=== PATIENT | male | born 1945 | race Caucasian/White ===

== ENCOUNTER 2020-07-24 11:12 | Inpatient (IN) ==
--- NOTE | 2020-07-24 11:43 | Emergency Department Note ---
Chest Pain HPI General Chief Complaint: Chest Pain Stated Complaint: chest pain, SOB Time Seen by Provider: 07/24/20 11:20 Source: patient and RN notes reviewed Mode of arrival: ambulatory Limitations: no limitations History of Present Illness HPI Narrative: Narrative: This patient developed chest pain yesterday on the right side of his chest that he described as a heartburn indigestion type sensation. It has resolved today. He does not have any history of cardiac disease although he said his rhythm recently has been diagnosed as A. fib a flutter. No history of coronary syndrome. He does have chronic COPD and is using oxygen at home 12/02. He is also has some green phlegm in his throat which she says is not new. No headache diarrhea abdominal pain or other symptoms. MD complaint: chest pain Duration: intermittent and now resolved Onset: during rest Pain Location: right chest Severity: moderate Quality: dull Pain Radiation: none Improves with: nothing Worsens with: nothing Related Data Home Medications Medication Instructions Recorded Confirmed albuterol sulfate 2 puff INHALATION Q4H PRN 07/24/20 07/24/20 amiodarone 200 mg PO BID 07/24/20 07/24/20 aspirin 81 mg PO QDAY 07/24/20 07/24/20 atorvastatin 80 mg PO QDAY 07/24/20 07/24/20 gabapentin 600 mg PO BID 07/24/20 07/24/20 insulin glargine 30 unit SUBCUT QPM 07/24/20 07/24/20 lidocaine 1 patch TOPICAL QDAY 07/24/20 07/24/20 metoprolol tartrate 100 mg PO BID 07/24/20 07/24/20 terbinafine HCl 1 applic TOPICAL QDAY 07/24/20 07/24/20 tiotropium-olodaterol 2 puff INHALATION Q24H 07/24/20 07/24/20 Allergies Allergy/AdvReac Type Severity Reaction Status Date / Time acetaminophen [From Percocet] AdvReac Unknown Verified 06/13/20 11:13 oxycodone [From Percocet] AdvReac Unknown Verified 06/13/20 11:13 Review of Systems ROS ROS Narrative: Narrative: All systems ED: reviewed and negative except as stated. [facility] Narrative Patient History Narrative: Narrative: Medical/Surgical/Family History All Active Problems (Updated 07/24/20 @ 13:35 by Gabriel Kim MD) Tachycardia (Acute) Generalized weakness (Acute) Elevated d-dimer (Acute) Constipation (Acute) CKD (chronic kidney disease) (Acute) Acute upper gastrointestinal bleeding (Acute) Social History Smoking Status: Former smoker Alcohol Intake Frequency: does not drink Substance Use: does not use Exam Narrative Narrative: Narrative: General Limitations: no limitations General appearance: Present alert Head Head: Present atraumatic, normocephalic and normal inspection Eye Eye: Present normal appearance and EOMI; Absent scleral icterus and conjunctival injection Neck Neck: Present normal inspection and full ROM Respiratory Respiratory: Present normal lung sounds bilaterally Cardiovascular Cardiovascular: Present tachycardia, irregular rhythm and normal heart sounds Adbominal Abdominal: Present soft; Absent distention and tenderness Rectal Rectal: Present heme (+) stool and black stool Extremities Extremities: Present normal inspection and full ROM; Absent pedal edema and pretibial edema Neurological Neurological: Present alert Psychiatric Psychiatric: Present normal affect Skin Skin: Present warm (WNL) and dry; Absent diaphoresis Course Vital Signs Vital signs: Vital Signs Temperature 97.9 F 07/24/20 11:13 Pulse Rate 98 H 07/24/20 11:13 Respiratory Rate 20 07/24/20 11:13 Blood Pressure 112/46 07/24/20 11:13 Pulse Oximetry (%) 100 07/24/20 11:13 Temperature 97.9 F 07/24/20 11:13 Pulse Rate 94 H 07/24/20 14:00 Respiratory Rate 20 07/24/20 14:00 Blood Pressure 120/80 07/24/20 13:30 Pulse Oximetry (%) 100 07/24/20 14:00 [facility] Narrative Medical decision making narrative: Narrative: It sounds like this patient may be on Eliquis for the last week but we can document that for sure. He was seen by a getter welder in [place] for new A. fib flutter and was placed on amiodarone. So Eliquis does make sense. I discussed the case with our general surgeon and the hospitalist to Dr. Dominique and the patient will be admitted to the hospital and endoscopy will be planned. We will also give him 3 units of packed red cells. He does appear to be hemodynamically stable. His troponin was negative and his EKG did not show acute coronary syndrome. Lab Data Lab results reviewed: Yes I reviewed the patient's lab results. Lab results narrative: Hemoglobin was 5.8 Result diagrams: 07/24/20 11:57 07/24/20 11:57 Labs: Lab Results 07/24/20 07/24/20 07/24/20 Range/Units 11:57 11:57 11:57 WBC 10.9 (4.5-11.0) K/mcL RBC 1.98 L (4.50-5.90) M/mcL Hgb 5.8 L* (13.5-16.5) g/dL Hct 19.5 L* (41.0-55.0) % MCV 98.5 (80.0-100.0) fL MCH 29.3 (26.0-34.0) pg MCHC 29.7 L (31.0-36.0) g/dL RDW 18.6 H (11.5-14.5) % Plt Count 321 (140-440) K/mcL MPV 10.1 (7.4-10.4) fL Neut % (Auto) 80.2 H (38.0-78.0) % Lymph % (Auto) 10.5 L (15.0-49.0) % [place] % (Auto) 8.7 (1.0-12.0) % Eos % (Auto) 0.4 (0.0-7.0) % Baso % (Auto) 0.2 (0.0-2.0) % Lymph # (Auto) 1.14 L (1.50-4.80) K/mcL [place] # (Auto) 0.94 H (0.10-0.90) K/mcL Eos # (Auto) 0.04 (0.00-0.70) K/mcL Baso # (Auto) 0.02 (0.00-0.20) K/mcL Absolute Neutrophils 8.71 H (1.80-8.00) K/mcL Sodium 136 (133-145) mmol/L Potassium 5.5 H (3.3-5.1) mmol/L Chloride 98 (96-108) mmol/L Carbon Dioxide 30 (22-30) mmol/L Anion Gap 8.0 (8.0-16.0) BUN 50 H (8-23) mg/dL Creatinine 2.2 H (0.7-1.2) mg/dL GFR Calculation 28 Glucose 178 H (70-105) mg/dL Calcium 9.0 (8.6-10.4) mg/dL Total Bilirubin 0.2 (0.1-1.0) mg/dL AST 9 (<40) U/L ALT 12 (<40) U/L Alkaline Phosphatase 80 (39-117) U/L Troponin T < 0.01 (<0.03) ng/mL NT-Pro-B Natriuret Pep 821.2 H (<450.0) pg/mL Total Protein 6.6 (5.9-8.4) gm/dL Albumin 3.6 (3.2-5.2) gm/dL Globulin 3.0 (2.2-3.7) gm/dL Albumin/Globulin Ratio 1.2 (1.0-2.3) Urine Color Urine Appearance (Clear) Urine pH (5.0-9.0) Ur Specific [place] (1.000-1.035) Urine Protein (Negative) mg/dL Urine Glucose (UA) (Negative) mg/dL Urine Ketones (Negative) mg/dL Urine Occult Blood (Negative) mg/dL Urine Nitrate (Negative) Urine Bilirubin (Negative) mg/dL Urine Urobilinogen mg/dL Ur Leukocyte Esterase (Negative) /ug Urine RBC (0-3) /hpf Urine WBC (0-4) /hpf Ur Squamous Epith Cells (0-4) /hpf Urine Bacteria (0) /hpf Urine Mucus (None) /hpf Ur Culture Indicated? 07/24/20 Range/Units 12:21 WBC (4.5-11.0) K/mcL RBC (4.50-5.90) M/mcL Hgb (13.5-16.5) g/dL Hct (41.0-55.0) % MCV (80.0-100.0) fL MCH (26.0-34.0) pg MCHC (31.0-36.0) g/dL RDW (11.5-14.5) % Plt Count (140-440) K/mcL MPV (7.4-10.4) fL Neut % (Auto) (38.0-78.0) % Lymph % (Auto) (15.0-49.0) % [place] % (Auto) (1.0-12.0) % Eos % (Auto) (0.0-7.0) % Baso % (Auto) (0.0-2.0) % Lymph # (Auto) (1.50-4.80) K/mcL [place] # (Auto) (0.10-0.90) K/mcL Eos # (Auto) (0.00-0.70) K/mcL Baso # (Auto) (0.00-0.20) K/mcL Absolute Neutrophils (1.80-8.00) K/mcL Sodium (133-145) mmol/L Potassium (3.3-5.1) mmol/L Chloride (96-108) mmol/L Carbon Dioxide (22-30) mmol/L Anion Gap (8.0-16.0) BUN (8-23) mg/dL Creatinine (0.7-1.2) mg/dL GFR Calculation Glucose (70-105) mg/dL Calcium (8.6-10.4) mg/dL Total Bilirubin (0.1-1.0) mg/dL AST (<40) U/L ALT (<40) U/L Alkaline Phosphatase (39-117) U/L Troponin T (<0.03) ng/mL NT-Pro-B Natriuret Pep (<450.0) pg/mL Total Protein (5.9-8.4) gm/dL Albumin (3.2-5.2) gm/dL Globulin (2.2-3.7) gm/dL Albumin/Globulin Ratio (1.0-2.3) Urine Color Yellow Urine Appearance Clear (Clear) Urine pH 5.0 (5.0-9.0) Ur Specific [place] 1.017 (1.000-1.035) Urine Protein 30 A (Negative) mg/dL Urine Glucose (UA) Negative (Negative) mg/dL Urine Ketones Negative (Negative) mg/dL Urine Occult Blood Negative (Negative) mg/dL Urine Nitrate Pos A (Negative) Urine Bilirubin Negative (Negative) mg/dL Urine Urobilinogen Negative mg/dL Ur Leukocyte Esterase 250 A (Negative) /ug Urine RBC 2 (0-3) /hpf Urine WBC 48 H (0-4) /hpf Ur Squamous Epith Cells 0 (0-4) /hpf Urine Bacteria Mod A (0) /hpf Urine Mucus Few A (None) /hpf Ur Culture Indicated? yes Radiology Data Radiology results reviewed: Yes I reviewed the patient's radiology results. 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
[2020-07-24 12:43] LABS: Basophils # (Auto) 0.02 K/mcL (0.00-0.20); Basophils % (Auto) 0.2 % (0.0-2.0); Eosinophils # (Auto) 0.04 K/mcL (0.00-0.70); Eosinophils % (Auto) 0.4 % (0.0-7.0); Hematocrit 19.5 % (41.0-55.0); Hemoglobin 5.8 g/dL (13.5-16.5); Lymphocytes # (Auto) 1.14 K/mcL (1.50-4.80); Lymphocytes % (Auto) 10.5 % (15.0-49.0); Mean Cell Volume 98.5 fL (80.0-100.0); Mean Corpuscular HGB Conc 29.7 g/dL (31.0-36.0); Mean Platelet Volume 10.1 fL (7.4-10.4); Monocytes # (Auto) 0.94 K/mcL (0.10-0.90); Monocytes % (Auto) 8.7 % (1.0-12.0); Neutrophils % (Auto) 80.2 % (38.0-78.0); Platelet Count 321 K/mcL (140-440); RBC 1.98 M/mcL (4.50-5.90); Red Cell Distribution Width 18.6 % (11.5-14.5); WBC 10.9 K/mcL (4.5-11.0)
[2020-07-24] MEDS ORDERED: 0.9 % SODIUM CHLORIDE 250 ML IV SCH (12:45)
[2020-07-24 12:53] LABS: proBNP 821.2 pg/mL (<450.0)
[2020-07-24 12:55] LABS: ALT/SGPT 12 U/L (<40); AST/SGOT 9 U/L (<40); Albumin 3.6 gm/dL (3.2-5.2); Albumin/Globulin Ratio 1.2 (1.0-2.3); Alkaline Phosphatase 80 U/L (39-117); Bilirubin,Total 0.2 mg/dL (0.1-1.0); Blood Urea Nitrogen 50 mg/dL (8-23); Carbon Dioxide 30 mmol/L (22-30); Chloride 98 mmol/L (96-108); Glomerular Filtration Rate 28; Glucose 178 mg/dL (70-105)
[2020-07-24 13:10] LABS: Appearance,Urine CLEAR (Clear); Bacteria,Urine MOD /hpf (0); Bilirubin,Urine Negative (Negative); Color,Urine YELLOW; Culture Indicated,Urine yes; Glucose,Urine (UA) Negative (Negative); Ketones,Urine Negative (Negative); Leukocyte Esterase,Urine 250 /ug (Negative); Mucus,Urine FEW /hpf; Nitrate,Urine POS (Negative); Protein,Urine 30 mg/dL (Negative); Specific Gravity,Urine 1.017 (1.000-1.035); Urine Blood Negative (Negative); Urine RBC 2 /hpf (0-3); Urine Squamous Epithelial Cell 0 /hpf (0-4); Urine WBC 48 /hpf (0-4); Urobilinogen,Urine Negative
[2020-07-24] MEDS ORDERED: PANTOPRAZOLE 40 MG VIAL IV ONE ×2 (13:12→22:31)
[2020-07-24] MEDS ORDERED: PANTOPRAZOLE 80 MG in 0.9 % SODIUM CHLORIDE 100 ML IV SCH ×2 (13:15→23:15)
--- NOTE | 2020-07-24 13:40 | Internal Med History&Physical ---
HPI History of Present Illness Patient information: Note initiated : 07/24/20 at 1:34 pm Service Date, if different from initiated Date: [] Patient: Darryn Cunningham a 74 y/o M admitted on for chest pain, SOB. Chief Complaint: [] History of present illness: Mr. Cunningham is a 74 year old M Who presents the ED with chest pain described as pyrosis in nature and weakness. Presented today because of severe weakness. He is visiting from out of town, visiting his daughter. Patient was recently diagnosed that fibrillation and has been on a twice daily anticoagulant which she cannot recall the name of. He started developing dark stools and then developed diarrhea for the past couple days which has been dark. Troponin was unremarkable. He is found have a hemoglobin of 5.8. Blood transfusion was ordered and general surgeon Dr. Macarena Mon was consulted for endoscopy. Patient's vital signs are stable. Patient complains of several week severe weakness is unable to walk across the room of his house. He has some lightheadedness. Chest pain started in the center of his chest and radiated count of up and down from the center and it felt like his heartburn. And then did have some radiation the left. But has improved but primarily his complaint now is weakness. Patient does have chronic headaches and takes Tylenol but does not take NSAIDs. [place] abdominal pain. Review of Systems: Positive as above. Plus chronic headaches. Denies /fever/chi lls/nausea/vomiting/abdominal pain/cough/dyspnea. Remaining 10 point review of system reviewed negative PFSH PFSH All Active Problems (Updated 07/24/20 @ 13:35 by Gabriel Kim MD) Tachycardia (Acute) Generalized weakness (Acute) Elevated d-dimer (Acute) Constipation (Acute) CKD (chronic kidney disease) (Acute) Acute upper gastrointestinal bleeding (Acute) Social History smoking status: Former smoker alcohol intake frequency: does not drink substance use type: does not use MEDS/ALLERGIES Home Medications and Allergies Home Medications Medication Instructions Recorded Confirmed Type albuterol sulfate 2 puff INHALATION Q4H PRN 07/24/20 07/24/20 History amiodarone 200 mg PO BID 07/24/20 07/24/20 History aspirin 81 mg PO QDAY 07/24/20 07/24/20 History atorvastatin 80 mg PO QDAY 07/24/20 07/24/20 History gabapentin 600 mg PO BID 07/24/20 07/24/20 History insulin glargine 30 unit SUBCUT QPM 07/24/20 07/24/20 History lidocaine 1 patch TOPICAL QDAY 07/24/20 07/24/20 History metoprolol tartrate 100 mg PO BID 07/24/20 07/24/20 History terbinafine HCl 1 applic TOPICAL QDAY 07/24/20 07/24/20 History tiotropium-olodaterol 2 puff INHALATION Q24H 07/24/20 07/24/20 History Allergies Allergy/AdvReac Type Severity Reaction Status Date / Time acetaminophen [From Percocet] AdvReac Unknown Verified 06/13/20 11:13 oxycodone [From Percocet] AdvReac Unknown Verified 06/13/20 11:13 EXAM Constitutional Vitals: Temp Pulse Resp BP Pulse Ox 97.9 F 93 H 21 120/80 100 07/24/20 11:13 07/24/20 13:16 07/24/20 13:30 07/24/20 13:30 07/24/20 13:16 Exam: General: Alert, Awake, No acute Distress Eyes/N/T: EOMI, PERRL, Head/Neck: neck supple, normocephalic atraumatic CV: irreg irreg, No murmurs, normal s1/s2 Pulm: Clear b/l, no wheezing/rhonchi/rales Abd: soft, nontender, +BS x4 Ext: no clubbing/cyanosis/edema Neuro: Alert, no focal deficits, moves all extremities, CN 2-12 grossly intact, symmetrical strength b/l upper/lower, sensations intact b/l upper/lower Skin: warm/dry, pale DATA Data Completed and Pending Labs: Labs from last 24 hours 07/24/20 07/24/20 07/24/20 12:21 11:57 11:57 WBC RBC Hgb Hct MCV MCH MCHC RDW Plt Count MPV Neut % (Auto) Lymph % (Auto) [place] % (Auto) Eos % (Auto) Baso % (Auto) Lymph # (Auto) [place] # (Auto) Eos # (Auto) Baso # (Auto) Absolute Neutrophils Sodium 136 Potassium 5.5 H Chloride 98 Carbon Dioxide 30 Anion Gap 8.0 BUN 50 H Creatinine 2.2 H GFR Calculation 28 Glucose 178 H Calcium 9.0 Total Bilirubin 0.2 AST 9 ALT 12 Alkaline Phosphatase 80 Troponin T < 0.01 NT-Pro-B Natriuret Pep 821.2 H Total Protein 6.6 Albumin 3.6 Globulin 3.0 Albumin/Globulin Ratio 1.2 Urine Color Yellow Urine Appearance Clear Urine pH 5.0 Ur Specific [place] 1.017 Urine Protein 30 A Urine Glucose (UA) Negative Urine Ketones Negative Urine Occult Blood Negative Urine Nitrate Pos A Urine Bilirubin Negative Urine Urobilinogen Negative Ur Leukocyte Esterase 250 A Urine RBC 2 Urine WBC 48 H Ur Squamous Epith Cells 0 Urine Bacteria Mod A Urine Mucus Few A Ur Culture Indicated? yes 07/24/20 11:57 WBC 10.9 RBC 1.98 L Hgb 5.8 L* Hct 19.5 L* MCV 98.5 MCH 29.3 MCHC 29.7 L RDW 18.6 H Plt Count 321 MPV 10.1 Neut % (Auto) 80.2 H Lymph % (Auto) 10.5 L [place] % (Auto) 8.7 Eos % (Auto) 0.4 Baso % (Auto) 0.2 Lymph # (Auto) 1.14 L [place] # (Auto) 0.94 H Eos # (Auto) 0.04 Baso # (Auto) 0.02 Absolute Neutrophils 8.71 H Sodium Potassium Chloride Carbon Dioxide Anion Gap BUN Creatinine GFR Calculation Glucose Calcium Total Bilirubin AST ALT Alkaline Phosphatase Troponin T NT-Pro-B Natriuret Pep Total Protein Albumin Globulin Albumin/Globulin Ratio Urine Color Urine Appearance Urine pH Ur Specific [place] Urine Protein Urine Glucose (UA) Urine Ketones Urine Occult Blood Urine Nitrate Urine Bilirubin Urine Urobilinogen Ur Leukocyte Esterase Urine RBC Urine WBC Ur Squamous Epith Cells Urine Bacteria Urine Mucus Ur Culture Indicated? A/P Narrative A/P Narrative: A: *GI bleed, likely upper: *Acute blood loss anemia: *AFib, recent diagnosed: Started on anticoagulation recently, also on aspirin *COPD (4L O2@home)`: *DM w/neuropathy: *CKD IV: * P: -NPO/ -ppi gtt -3PRBC ordered, monitor H&H -Gen Surgeon for endoscopy -Continue home amio/BB -hold anticoagulant/aspirin -cont home insulin, SSI -cont home IH's - -pt/ot -ppx: SCD full code Time Spent With Patient Time: Total time spent is greater than 50% in coordination of care (as documented) at patient's floor/unit and/or counseling patient:
[2020-07-24] MEDS ORDERED: DEXTROSE 31 GM ORAL.SUSP PO PRN (14:30)
[2020-07-24] MEDS ORDERED: TIOTROPIUM OLODATEROL INHALATION SCH (14:30)
[2020-07-24] MEDS ORDERED: POTASSIUM CHLORIDE 20 MEQ TABLET PO PRN ×2 (14:30)
[2020-07-24] MEDS ORDERED: ONDANSETRON 4 MG/2 ML VIAL IV PRN (14:30)
[2020-07-24] MEDS ORDERED: MAGNESIUM SULFATE 2 GM/50 ML BAG IV PRN (14:30)
[2020-07-24] MEDS ORDERED: METOCLOPRAMIDE 10 MG/2 ML VIAL IV PRN (14:30)
[2020-07-24] MEDS ORDERED: PHENobarb/HYOSCY/ATROPINE/SCOP 1 DOSE BOTTLE PO PRN (14:30)
[2020-07-24] MEDS ORDERED: POTASSIUM CHLORIDE 40 MEQ in DEXTROSE 5% IN WATER 500 ML IV PRN (14:30)
[2020-07-24] MEDS ORDERED: IPRATROPIUM/ALBUTEROL 3 ML AMPUL.NEB NEB PRN (14:30)
[2020-07-24] MEDS ORDERED: ALBUTEROL SULFATE 200 PUFF INHALER INH PRN (14:30)
[2020-07-24] MEDS ORDERED: DEXTROSE 50% 50 ML VIAL IV PRN (14:30)
[2020-07-24] MEDS ORDERED: METOPROLOL TARTRATE 5 MG/5 ML VIAL IV PRN (14:30)
--- NOTE | 2020-07-24 14:47 | XRay Report ---
HISTORY: Short of breath and chest pain FINDINGS: Right diaphragm is mild to moderately elevated. There are bands of discoid atelectasis adjacent to both diaphragms. Mid and upper lung cordero are clear. Heart size is upper limits of normal but magnified by portable technique. Recent chest CT done on 06/14/20 confirmed a normal size heart with a prominent epicardial fat pad along the left heart border. The elevation of the right diaphragm is also chronic. There is no congestive heart failure or pleural effusion. The mediastinum is normal. Overall there has been no change since 06/13/20. IMPRESSION: No acute abnormality Interpreted and Authenticated by: David Joseph 07/24/20
[2020-07-24] MEDS: 0.9 % SODIUM CHLORIDE 10 ML SYRINGE IV SCH ×2 (15:00→22:34)
[2020-07-24] MEDS: CALCIUM CARBONATE 500 MG TAB.CHEW CHEWED SCH (16:18)
[2020-07-24] MEDS: INSULIN LISPRO 1 UNIT/0.01 ML UNIT SQ SCH ×2 (16:18→20:49)
[2020-07-24] MEDS: 0.9 % SODIUM CHLORIDE 250 ML IV SCH (16:19)
[2020-07-24] MEDS: ACETAMINOPHEN 325 MG TABLET PO PRN (19:34)
--- NOTE | 2020-07-24 19:52 | General Surgery Consult Note ---
HPI Data of Consult Primary Care Provider: PCP No Consult Narrative Patient Information: Note initiated : 07/24/20 at 7:41 pm Service Date, if different from initiated Date: [] Patient: Darryn Cunningham 74 y/o M admitted on 07/24/20 for chest pain, SOB. Chief Complaint: GI bleed HPI: 74 yo chronically unwell man HD1 admitted for GI bleed. In the setting of advanced COPD on 4L hm oxygen and OSH on nightly BIPAP and T2DM pt developed Afib. He was recently started on anticoagulation with a presumed Factor Xa inhibitory (oral tablet taken BID). 2 days ago developed melanotic diarrhea with associated fatigue, loss of appitite, and began sleeping most of day. Yesterday he again had a normal brown bowel movement but then again resumed with a melanotic stool yesterday evening. He denies any associated epigastric or other abdominal pain. Did have substernal chest pain prior to recieving blood transfusitons. In the ED pt was noted to have a Hb 5.8 and mild tackycardia. Cr 2.2 with BUN 50. No hypotention. He is now s/p 3 units of blood and feels much improved energy. He has not had a BM today. Last ingested his anticoagulant 24hrs ago. Of note: pt has a 7cm AAA and is awaiting manufacture of a custom aortic graft prior to planned TVAR. No hx of PUD. He does report a hx of liver disease from prior heavy drinking. Brother with hx of colon cancer. Last colonoscopy 1+ yrs ago with single polyp removed. Pt is known to have diverticulosis. PMH: COPD KURT CKD A fib T2DM hx of tobacco depenendence Questional hx of liver disease PMH: B inguinal hernia umbilical hernia Hip replacement Bilaterally Renal stents ?lithotripsy cc:: CC: Cedrick Dominique Constitutional Constitutional: Present daytime sleepiness and weakness; Absent fever(s) and increased appetite EENT Eyes: Absent tunnel vision Cardiovascular Cardiovascular: Present chest pain with activity Respiratory Respiratory: Present dyspnea on exertion Gastrointestinal Gastrointestinal: Present melena; Absent abdominal pain Genitourinary Genitourinary: urinary frequency Musculoskeletal Musculoskeletal: Present arthralgias Integumentary Integumentary: Absent pruritus Neurological Neurological: Present abnormal gait; Absent memory loss Endocrine Endocrine: Absent palpitations Hematologic/Lymphatic Hematologic/Lymphatic: Absent lymphadenopathy Allergic/Immunologic Allergic/Immunologic: Absent throat swelling PFSH PFSH All Active Problems (Updated 07/24/20 @ 20:09 by Aquiles Dubose MD) Tachycardia (Acute) Generalized weakness (Acute) Elevated d-dimer (Acute) Constipation (Acute) CKD (chronic kidney disease) (Acute) Acute upper gastrointestinal bleeding (Acute) Social History smoking status: Former smoker alcohol intake frequency: does not drink substance use type: does not use MEDS/ALLERGIES Home Medications and Allergies Home Medications Medication Instructions Recorded Confirmed Type Lacto.acidophilus-Bif.animalis 1 cap PO DAILY 07/24/20 07/24/20 History [Daily Probiotic] acetaminophen 1,000 mg PO Q6H PRN 07/24/20 07/24/20 History albuterol sulfate 2 puff INHALATION Q4H PRN 07/24/20 07/24/20 History amiodarone 200 mg PO BID 07/24/20 07/24/20 History aspirin 81 mg PO QDAY 07/24/20 07/24/20 History atorvastatin 80 mg PO QDAY 07/24/20 07/24/20 History gabapentin 600 mg PO BID 07/24/20 07/24/20 History insulin glargine 34 unit SUBCUT QPM 07/24/20 07/24/20 History lidocaine 1 patch TOPICAL QDAY 07/24/20 07/24/20 History magnesium oxide 420 mg PO QDAY 07/24/20 07/24/20 History metoprolol tartrate 100 mg PO BID 07/24/20 07/24/20 History tiotropium-olodaterol 2 puff INHALATION Q24H 07/24/20 07/24/20 History Allergies Allergy/AdvReac Type Severity Reaction Status Date / Time oxycodone AdvReac Mild Vomiting Verified 07/24/20 19:46 Physical Examination Vital Signs Vital signs: Temp Pulse Resp BP Pulse Ox 37.4 C H 92 H 16 127/79 98 07/24/20 18:27 07/24/20 19:00 07/24/20 19:00 07/24/20 19:00 07/24/20 19:00 General physical appearance General physical exam: other (very clear cognitively, excellent historian. A and O x4) Eyes Eye exam: negative pale and icteric ENT ENT exam: negative nasal discharge Head Head exam IM: Present atraumatic and normocephalic Cardiovascular Cardiovascular: RRR no MGR Respiratory Respiratory exam: other (increased respiratory effort, distant but clear breathsounds) Abdomen Abdomen: Present soft (large rotund abdomen, completely nontender including in epigastric area ) and non tender Rectum Rectum: Present normal sphincter tone, no tenderness, no masses and other (melanotic stool, guiac +++++) Psychiatric Psychiatric: Present oriented to time, oriented to person, oriented to place, speech is normal and memory intact Results Labs Result diagrams: 07/24/20 11:57 07/24/20 11:57 Labs: Abnormal lab results 07/24/20 07/24/20 07/24/20 Range/Units 11:57 11:57 12:21 RBC 1.98 L (4.50-5.90) M/mcL Hgb 5.8 L* (13.5-16.5) g/dL Hct 19.5 L* (41.0-55.0) % MCHC 29.7 L (31.0-36.0) g/dL RDW 18.6 H (11.5-14.5) % Neut % (Auto) 80.2 H (38.0-78.0) % Lymph % (Auto) 10.5 L (15.0-49.0) % Lymph # (Auto) 1.14 L (1.50-4.80) K/mcL Carbon # (Auto) 0.94 H (0.10-0.90) K/mcL Absolute Neutrophils 8.71 H (1.80-8.00) K/mcL Potassium 5.5 H (3.3-5.1) mmol/L BUN 50 H (8-23) mg/dL Creatinine 2.2 H (0.7-1.2) mg/dL Glucose 178 H (70-105) mg/dL NT-Pro-B Natriuret Pep 821.2 H (<450.0) pg/mL Urine Protein 30 A (Negative) mg/dL Urine Nitrate Pos A (Negative) Ur Leukocyte Esterase 250 A (Negative) /ug Urine WBC 48 H (0-4) /hpf Urine Bacteria Mod A (0) /hpf Urine Mucus Few A (None) /hpf Diabetes panel 07/24/20 Range/Units 11:57 Sodium 136 (133-145) mmol/L Potassium 5.5 H (3.3-5.1) mmol/L Chloride 98 (96-108) mmol/L Carbon Dioxide 30 (22-30) mmol/L BUN 50 H (8-23) mg/dL Creatinine 2.2 H (0.7-1.2) mg/dL Glucose 178 H (70-105) mg/dL Calcium 9.0 (8.6-10.4) mg/dL AST 9 (<40) U/L ALT 12 (<40) U/L Alkaline Phosphatase 80 (39-117) U/L Total Protein 6.6 (5.9-8.4) gm/dL Albumin 3.6 (3.2-5.2) gm/dL Calcium panel 07/24/20 Range/Units 11:57 Calcium 9.0 (8.6-10.4) mg/dL Albumin 3.6 (3.2-5.2) gm/dL Pituitary panel 07/24/20 Range/Units 11:57 Sodium 136 (133-145) mmol/L Potassium 5.5 H (3.3-5.1) mmol/L Chloride 98 (96-108) mmol/L Carbon Dioxide 30 (22-30) mmol/L BUN 50 H (8-23) mg/dL Creatinine 2.2 H (0.7-1.2) mg/dL Glucose 178 H (70-105) mg/dL Calcium 9.0 (8.6-10.4) mg/dL Adrenal panel 07/24/20 Range/Units 11:57 Sodium 136 (133-145) mmol/L Potassium 5.5 H (3.3-5.1) mmol/L Chloride 98 (96-108) mmol/L Carbon Dioxide 30 (22-30) mmol/L BUN 50 H (8-23) mg/dL Creatinine 2.2 H (0.7-1.2) mg/dL Glucose 178 H (70-105) mg/dL Calcium 9.0 (8.6-10.4) mg/dL Total Bilirubin 0.2 (0.1-1.0) mg/dL AST 9 (<40) U/L ALT 12 (<40) U/L Alkaline Phosphatase 80 (39-117) U/L Total Protein 6.6 (5.9-8.4) gm/dL Albumin 3.6 (3.2-5.2) gm/dL All other labs normal. A/P Assessment and plan (1) Acute upper gastrointestinal bleeding: Status: Acute Comment: 74 yo man with GI bleeding down to hb 5.8 on anticoagulant. Likely sub acute given absence of significant vital sign changes. I suspect he may nolonger be bleeding given his response to blood but more significantly the absence of any BMs today. UGI suspected with melanotic stools. But lower GI with slow transit possible. DDx is broad including vericeal bleeding with liver disease hx, gastric lesions, PUD. Known diverticulosis also possible source of bleed. Colorectal cancer possible but less likely with recent endoscopy. Of most concern would be a aortoenteric fistula with hx of moderately large AAA. Plan: Agree with PPI gtt Given stability and likely upper GI source will wait until morning for upper endoscopy. Will allow more time for Xa inhib to clear. Awaiting improvement of RED as well to obtain CT angio of AAA to eval for AEF. Pt is high risk for anesthesia and appreciate anesthesia department involvement Risks of bleeding, injury, perforation discussed with pt. If CTA and EGD unrevealing will need prep and colonoscopy Aquiles Dubose MD Surgery Time Spent With Patient Time: Total time spent is greater than 50% in coordination of care (as documented) at patient's floor/unit and/or counseling patient:
[2020-07-24] MEDS: GABAPENTIN 300 MG CAPSULE PO SCH (20:43)
[2020-07-24] MEDS: ATORVASTATIN 40 MG TABLET PO SCH (20:43)
[2020-07-24] MEDS: METOPROLOL TARTRATE 50 MG TABLET PO SCH (20:43)
[2020-07-24] MEDS: AMIODARONE HCL 200 MG TABLET PO SCH (20:43)
[2020-07-24] MEDS: INSULIN GLARGINE, HUMAN 1 UNIT/0.01 ML SQ SCH (20:48)
[2020-07-24 20:56] LABS: Hematocrit 26.2 % (41.0-55.0); Hemoglobin 8.2 g/dL (13.5-16.5); Mean Cell Volume 95.6 fL (80.0-100.0); Mean Corpuscular HGB Conc 31.3 g/dL (31.0-36.0); Mean Platelet Volume 9.9 fL (7.4-10.4); Platelet Count 281 K/mcL (140-440); RBC 2.74 M/mcL (4.50-5.90); Red Cell Distribution Width 16.9 % (11.5-14.5); WBC 9.9 K/mcL (4.5-11.0)
[2020-07-24 21:30] LABS: INR 1.3 (0.9-1.1); Prothrombin Time 16.4 sec (11.9-14.5)
[2020-07-24 22:13] LABS: Anisocytosis 1+ (None Seen); Band Neutrophils % 4 % (0-10); Eosinophils % (Manual) 1 % (0-7); Lymphocytes % 14 % (15-49); Monocytes % (Manual) 3 % (1-12); Platelet Estimate NORMAL (Normal); RBC Morphology NORMAL (Normal); Segmented Neutrophils % 78 % (38-78)
[2020-07-25] MEDS: 0.9 % SODIUM CHLORIDE 250 ML IV SCH (03:33)
[2020-07-25] MEDS: 0.9 % SODIUM CHLORIDE 10 ML SYRINGE IV SCH ×3 (06:07→23:00)
[2020-07-25 06:19] LABS: Basophils # (Auto) 0.05 K/mcL (0.00-0.20); Basophils % (Auto) 0.6 % (0.0-2.0); Eosinophils # (Auto) 0.15 K/mcL (0.00-0.70); Eosinophils % (Auto) 1.8 % (0.0-7.0); Hematocrit 24.5 % (41.0-55.0); Hemoglobin 7.5 g/dL (13.5-16.5); Lymphocytes # (Auto) 1.42 K/mcL (1.50-4.80); Lymphocytes % (Auto) 17.2 % (15.0-49.0); Mean Corpuscular HGB Conc 30.6 g/dL (31.0-36.0); Mean Platelet Volume 9.8 fL (7.4-10.4); Monocytes # (Auto) 0.95 K/mcL (0.10-0.90); Monocytes % (Auto) 11.5 % (1.0-12.0); Neutrophils % (Auto) 68.9 % (38.0-78.0); Platelet Count 261 K/mcL (140-440); RBC 2.58 M/mcL (4.50-5.90); Red Cell Distribution Width 17.2 % (11.5-14.5); WBC 8.3 K/mcL (4.5-11.0)
[2020-07-25 07:26] LABS: ALT/SGPT 9 U/L (<40); AST/SGOT 9 U/L (<40); Albumin/Globulin Ratio 1.1 (1.0-2.3); Alkaline Phosphatase 70 U/L (39-117); Bilirubin,Direct < 0.2 mg/dL (<0.3); Bilirubin,Total 0.4 mg/dL (0.1-1.0); Blood Urea Nitrogen 41 mg/dL (8-23); Calcium 8.3 mg/dL (8.6-10.4); Carbon Dioxide 31 mmol/L (22-30); Chloride 100 mmol/L (96-108); Globulin 2.7 gm/dL (2.2-3.7); Glomerular Filtration Rate 32; Glucose 110 mg/dL (70-105); Lactate Dehydrogenase 126 U/L (135-225); Triglycerides 138 mg/dL (<150); Uric Acid 7.3 mg/dL (2.5-8.0)
[2020-07-25] MEDS: INSULIN LISPRO 1 UNIT/0.01 ML UNIT SQ SCH ×4 (07:44→23:02)
--- NOTE | 2020-07-25 07:52 | Internal Med Progress Note ---
SUBJECTIVE Subjective Patient information: Note initiated : 07/25/20 at 7:46 am Service Date, if different from initiated Date: [] Patient: Darryn Cunningham 74 y/o M admitted on 07/24/20 for chest pain, SOB. Chief Complaint: [] Interval history: History of present illness: Mr. Cunningham is a 74 year old M Who presents the ED with chest pain described as pyrosis in nature and weakness. Presented today because of severe weakness. He is visiting from out of town, visiting his daughter. Patient was recently diagnosed that fibrillation and has been on a twice daily anticoagulant which she cannot recall the name of. He started developing dark stools and then developed diarrhea for the past couple days which has been dark. Troponin was unremarkable. He is found have a hemoglobin of 5.8. Blood transfusion was ordered and general surgeon Dr. Macarena Mon was consulted for endoscopy. Patient's vital signs are stable. Patient complains of several week severe weakness is unable to walk across the room of his house. He has some lightheadedness. Chest pain started in the center of his chest and radiated count of up and down from the center and it felt like his heartburn. And then did have some radiation the left. But has improved but primarily his complaint now is weakness. Patient does have chronic headaches and takes Tylenol but does not take NSAIDs. No abdominal pain. 1/3 Feeling much better since blood transfusion. Feeling stronger. No bloody stools overnight. Pending endoscopy. Review of Systems: denies headache/fever/chills/nausea/vomiting/chest or abdominal pain/cough/dyspnea. Otherwise see above. Constitutional Vitals: Vital Signs Temp Pulse Resp BP Pulse Ox 97.6 F 80 26 H 123/78 96 07/25/20 05:00 07/25/20 07:02 07/25/20 07:02 07/25/20 07:02 07/25/20 07:02 Period Temp Pulse Resp BP Sys/De Guzman Pulse Ox Last 24 Hr 97.6 F-99.4 F 76-113 8-26 96-139/46-120 94-100 Intake and Output 07/24/20 07/25/20 07/25/20 21:59 05:59 13:59 Intake Total 1817 882 Output Total 530 650 Balance 1287 232 Weight 111.72 kg Intake & Output: Intake & Output 07/24/20 07/25/20 07/25/20 21:59 05:59 13:59 Intake Total 1817 882 Output Total 530 650 Balance 1287 232 Weight 111.72 kg Intake: Nourishment/Supplement quantity 835 120 (ml) IV 7 312 Sodium Chloride 0.9% 250 ml @ 225 20 mls/hr IV .[id number] [facility] Rx#: [id number] Protonix 80 mg In Sodium 7 87 Chloride 0.9% 100 ml @ 8 MG/HR 10 mls/hr IV Q10H [facility] Rx#: [id number] Oral 450 Blood Product 975 Output: Void Amount 530 650 Other: Meal Sherbert/Broth Jello Percent of Meal Consumed 100% 100% Feeding Ability Independent Urine Color Bright Yellow Bright Yellow # Voids 250 Exam: General: Alert, Awake, No acute Distress Eyes/N/T: EOMI, Head/Neck: neck supple, CV: irreg irreg, No murmurs, Pulm: Clear b/l, no wheezing/rhonchi/rales Abd: soft, nontender, +BS x4 Ext: no clubbing/cyanosis/edema Neuro: Alert, no focal deficits, moves all extremities, Skin: warm/dry, OBJ DATA Labs CBC & Chem 7: 07/25/20 05:25 07/25/20 05:25 Labs: Abnormal Lab Results 07/25/20 07/25/20 07/24/20 05:25 05:25 20:15 RBC 2.58 L Hgb 7.5 L Hct 24.5 L MCHC 30.6 L RDW 17.2 H Neut % (Auto) Lymph % (Auto) Lymph # (Auto) 1.42 L [place] # (Auto) 0.95 H Lymphocytes % Absolute Neutrophils Anisocytosis PT 16.4 H INR 1.3 H Potassium Carbon Dioxide 31 H Anion Gap 7.0 L BUN 41 H Creatinine 2.0 H Glucose 110 H Calcium 8.3 L Lactate Dehydrogenase 126 L NT-Pro-B Natriuret Pep Total Protein 5.7 L Albumin 3.0 L Urine Protein Urine Nitrate Ur Leukocyte Esterase Urine WBC Urine Bacteria Urine Mucus 07/24/20 07/24/20 07/24/20 20:15 12:21 11:57 RBC 2.74 L Hgb 8.2 L Hct 26.2 L MCHC RDW 16.9 H Neut % (Auto) Lymph % (Auto) Lymph # (Auto) [place] # (Auto) Lymphocytes % 14 L Absolute Neutrophils Anisocytosis 1+ A PT INR Potassium 5.5 H Carbon Dioxide Anion Gap BUN 50 H Creatinine 2.2 H Glucose 178 H Calcium Lactate Dehydrogenase NT-Pro-B Natriuret Pep 821.2 H Total Protein Albumin Urine Protein 30 A Urine Nitrate Pos A Ur Leukocyte Esterase 250 A Urine WBC 48 H Urine Bacteria Mod A Urine Mucus Few A 07/24/20 11:57 RBC 1.98 L Hgb 5.8 L* Hct 19.5 L* MCHC 29.7 L RDW 18.6 H Neut % (Auto) 80.2 H Lymph % (Auto) 10.5 L Lymph # (Auto) 1.14 L [place] # (Auto) 0.94 H Lymphocytes % Absolute Neutrophils 8.71 H Anisocytosis PT INR Potassium Carbon Dioxide Anion Gap BUN Creatinine Glucose Calcium Lactate Dehydrogenase NT-Pro-B Natriuret Pep Total Protein Albumin Urine Protein Urine Nitrate Ur Leukocyte Esterase Urine WBC Urine Bacteria Urine Mucus Meds: Medications Acetaminophen (Tylenol) 650 mg PO Q6HP PRN PRN Reason: PAIN/FEVER > 101 Last Admin: 07/24/20 19:34 Dose: 650 mg Documented by: Albuterol Sulfate (Ventolin) 2 puff INH Q4H PRN PRN Reason: short of breath Albuterol/Ipratropium (Duoneb) 3 ml NEB Q4HP PRN PRN Reason: Shortness Of Breath Amiodarone HCl (Cordarone) 200 mg PO BID [facility] Last Admin: 07/24/20 20:43 Dose: 200 mg Documented by: Atorvastatin Calcium (Lipitor) 80 mg PO HS [facility] Last Admin: 07/24/20 20:43 Dose: 80 mg Documented by: Belladonna/Phenobarbital (Gi Cocktail) 1 dose PO Q4HP PRN PRN Reason: Dyspepsia Calcium Carbonate/Glycine (Tums) 500 mg CHEWED TIDCC [facility] Last Admin: 07/24/20 16:18 Dose: Not Given Documented by: Dextrose (Dextrose 50%) 0 ml IV UD PRN PRN Reason: Hypoglycemia Diagnostic Test (Pha) (Accu-Chek) 1 each FS ACHS [facility] Last Admin: 07/25/20 07:42 Dose: 1 each Documented by: Gabapentin (Neurontin) 600 mg PO BID [facility] Last Admin: 07/24/20 20:43 Dose: 600 mg Documented by: Glucose (Insta-Glucose) 15 gm PO PRN PRN PRN Reason: Hypoglycemia Pantoprazole Sodium 80 mg/ (Sodium Chloride) 100 mls @ 10 mls/hr IV Q10H [facility] Last Admin: 07/24/20 22:31 Dose: 8 mg/hr, 10 mls/hr Documented by: Potassium Chloride 40 meq/ (Dextrose) 520 mls @ 130 mls/hr IV UD PRN PRN Reason: Potassium < 3 Magnesium Sulfate (Magnesium Sulfate) 2 gm in 50 mls @ 50 mls/hr IV UD PRN PRN Reason: Magnesium </= 1.6 Acetaminophen (Ofirmev) 1,000 mg in 100 mls @ 200 mls/hr IV Q8HP PRN; Protocol PRN Reason: PAIN/FEVER > 101 Insulin Glargine (Lantus) 30 unit SQ HS [facility] Last Admin: 07/24/20 20:48 Dose: 30 units Documented by: Insulin Human Lispro (Humalog) 0 unit SQ [facility]; Protocol Last Admin: 07/25/20 07:44 Dose: Not Given Documented by: Lidocaine (Lidoderm) 1 patch TOPICAL QDAY [facility] Metoclopramide HCl (Reglan) 10 mg IV Q6HP PRN PRN Reason: Nausea And Vomiting Metoprolol Tartrate (Lopressor) 100 mg PO BID [facility] Last Admin: 07/24/20 20:43 Dose: 100 mg Documented by: Metoprolol Tartrate (Lopressor) 5 mg IV Q2HP PRN PRN Reason: Tachyarrhythmias HR>110 Ondansetron HCl (Zofran) 4 mg IV Q4HP PRN PRN Reason: Nausea And Vomiting Tiotropium- Olodaterol [Stioloto ] Inhaler 2 dose INH DAILY [facility] Potassium Chloride (Kdur) 40 meq PO UD PRN PRN Reason: Potssium is 3-3.5 Potassium Chloride (Kdur) 40 meq PO UD PRN PRN Reason: Potassium < 3 Sodium Chloride (Saline Flush) 10 ml IV Q8 [facility] Last Admin: 07/25/20 06:07 Dose: Not Given Documented by: A/P Narrative A/P Narrative: A: *GI bleed, likely upper: *Acute blood loss anemia on likely chronic given CKD: -3PRBC(1/2) *Pyrosis: *AFib, recent diagnosed: Started on anticoagulation (?eliquis) recently, also on aspirin *COPD (4L O2@home): *KURT w/cpap: *DM w/neuropathy: *CKD IV: P: -ppi gtt -transfuse 1prbc, monitor H&H -Gen Surgeon for endoscopy -Continue home amio/BB -hold anticoagulant(?eliquis)/aspirin for now -cont home insulin, SSI -cont home IH's and CPAP -d/c with ppi -pt/ot -ppx: SCD full code Time Spent With Patient Time: Total time spent is greater than 50% in coordination of care (as documented) at patient's floor/unit and/or counseling patient: QUALITY Stroke Symptom Onset Unknown: No VTE Deep Vein Thrombosis/Pulmonary Embolism Present on Admission: No
[2020-07-25] MEDS: ACETAMINOPHEN 1,000 MG/100 ML BAG IV PRN ×2 (07:54→16:25)
[2020-07-25] MEDS: AMIODARONE HCL 200 MG TABLET PO SCH ×2 (07:54→23:02)
[2020-07-25] MEDS ORDERED: 0.9 % SODIUM CHLORIDE 250 ML IV SCH (08:00)
[2020-07-25] MEDS ORDERED: PANTOPRAZOLE 80 MG in 0.9 % SODIUM CHLORIDE 100 ML IV SCH (09:00)
[2020-07-25] MEDS ORDERED: PANTOPRAZOLE 40 MG VIAL IV ONE (09:02)
--- NOTE | 2020-07-25 10:49 | General Surgery Progress Note ---
SUBJECTIVE Subjective Patient information: Note initiated : 07/25/20 at 10:47 am Service Date, if different from initiated Date: [] Patient: Darryn Cunningham 74 y/o M admitted on 07/24/20 for chest pain, SOB. Chief Complaint: S: feeling well this am, No stool since admission, Hct 24 from peak of 26 after 3 units PRBC O: VSS making urine Abd soft nontender A/P 74 yo man 36hrs since last dose of factor Xa inhibitor - with recent hx of meleana Plan for EGD today Risk of bleeding, injury/perforation, infection. substantial anesthetic risk all discussed. Aquiles Dubose MD Surgery Constitutional Vitals: Vital Signs Temp Pulse Resp BP Pulse Ox 36.6 C 81 20 123/74 97 07/25/20 08:01 07/25/20 09:48 07/25/20 09:48 07/25/20 08:01 07/25/20 09:48 Period Temp Pulse Resp BP Sys/De Guzman Pulse Ox Last 24 Hr 36.4 C-37.4 C 76-113 8-32 96-139/46-120 94-100 Intake and Output 07/24/20 07/25/20 07/25/20 21:59 05:59 13:59 Intake Total 1817 882 100 Output Total 530 650 225 Balance 1287 232 -125 Weight 111.72 kg Intake & Output: Intake & Output 07/24/20 07/25/20 07/25/20 21:59 05:59 13:59 Intake Total 1817 882 100 Output Total 530 650 225 Balance 1287 232 -125 Weight 111.72 kg Intake: Nourishment/Supplement quantity 835 120 (ml) IV 7 312 100 Sodium Chloride 0.9% 250 ml @ 225 20 mls/hr IV .[id number] [facility] Rx#: [id number] Protonix 80 mg In Sodium 7 87 100 Chloride 0.9% 100 ml @ 8 MG/HR 10 mls/hr IV Q10H [facility] Rx#: [id number] Oral 450 Blood Product 975 Output: Void Amount 530 650 225 Other: Meal Sherbert/Broth Jello Percent of Meal Consumed 100% 100% Feeding Ability Independent Urine Color Bright Yellow Bright Yellow Light Rubi Urine Odor Normal # Voids 250 A/P Time Spent With Patient Time: Total time spent is greater than 50% in coordination of care (as documented) at patient's floor/unit and/or counseling patient:
[2020-07-25] MEDS: CALCIUM CARBONATE 500 MG TAB.CHEW CHEWED SCH ×3 (11:11→16:25)
[2020-07-25] MEDS: LIDOCAINE PATCH TOPICAL SCH (11:11)
[2020-07-25] MEDS: TIOTROPIUM OLODATEROL INH SCH ×2 (11:12→18:24)
[2020-07-25] MEDS: METOPROLOL TARTRATE 50 MG TABLET PO SCH (11:12)
[2020-07-25] MEDS: GABAPENTIN 300 MG CAPSULE PO SCH ×2 (11:12→23:02)
[2020-07-25] MEDS ORDERED: KETAMINE 100 MG/ML ML ONE (11:15)
[2020-07-25] MEDS ORDERED: NALBUPHINE 10 MG/ML AMPUL IV ONE (11:15)
[2020-07-25] MEDS ORDERED: LIDOCAINE HCL/PF 100 MG/5 ML SYRINGE IV ONE (11:15)
[2020-07-25] MEDS ORDERED: PROPOFOL 200 MG/20 ML VIAL IV ONE (11:15)
--- NOTE | 2020-07-25 12:10 | Brief Operative Note ---
Brief Operative Note Date of procedure: 07/25/20 Procedure: Date of procedure: 07/25/20 Pre-op diagnosis: UGIB Post-op diagnosis: same Procedure: EGD Grafts/Implants: No Anesthesia: conscious sedation Findings: 1) Multiple ~4 duodenal polyps - s/p biopsy 2) Mild duodenitis - s/p biopsy 3) 3 small pyloric ulcers - no active bleeding or adherent clot 4) multiple antral bipsies for h pylori 5) heathy gastric mucosa 6) GEJ and hiatus at 48cm 7) No esophageal varices, tortuous esophagus Complications: none Surgeon: Aquiles Dubose Estimated blood loss (cc): 0 Specimens Removed/Pathology: other (duodenal polyp, duodenitis, gastric antrum ) Condition: stable Disposition: PACU Surgeon: Aquiles Dubose
[2020-07-25] MEDS: cefTRIAXone 1 GM VIAL IV SCH (13:24)
--- NOTE | 2020-07-25 17:29 | Discharge Summary ---
Discharge Provider Provider Patient information: Note initiated : 07/25/20 at 5:27 pm Service Date, if different from initiated Date: [] Patient: Darryn Cunningham 74 y/o M admitted on 07/24/20 for chest pain, SOB. Chief Complaint: [] Date of admission: 07/24/20 14:27 Discharge date: 07/26/20 Primary care physician: PCP No Consults: 07/24/20 13:06 Consult to Physician [CONS] Stat Comment: Consulting Provider: Cedrick Dominique Reason For Exam: Physician to Consult 07/24/20 13:07 Consult to Physician [CONS] Stat Comment: Consulting Provider: Aquiles Dubose Reason For Exam: Physician to Consult Discharge Meds Discharge Medications Home Medications Daily Probiotic 1 cap PO DAILY 07/24/20 [History Confirmed 07/24/20 Last Taken 07/23/20 08:00] acetaminophen 1,000 mg PO Q6H PRN 07/24/20 [History Confirmed 07/24/20 Last Taken 07/24/20 07:00] albuterol sulfate 2 puff INHALATION Q4H PRN 07/24/20 [History Confirmed 07/24/20 Last Taken 07/23/20 08:00] amiodarone 200 mg PO BID 07/24/20 [History Confirmed 07/24/20 Last Taken 07/23/20 20:00] atorvastatin 80 mg PO QDAY 07/24/20 [History Confirmed 07/24/20 Last Taken 07/23/20 08:00] gabapentin 600 mg PO BID 07/24/20 [History Confirmed 07/24/20 Last Taken 20:00] insulin glargine 34 unit SUBCUT QPM 07/24/20 [History Confirmed 07/24/20 Last Taken 07/23/20 20:00] lidocaine 1 patch TOPICAL QDAY 07/24/20 [History Confirmed 07/24/20 Last Taken 07/23/20 08:00] magnesium oxide 420 mg PO QDAY 07/24/20 [History Confirmed 07/24/20 Last Taken 07/23/20 08:00] metformin 500 mg PO BID 07/24/20 [History Confirmed 07/24/20 Last Taken 07/23/20 21:00] metoprolol tartrate 100 mg PO BID 07/24/20 [History Confirmed 07/24/20 Last Taken 07/23/20 20:00] tiotropium-olodaterol 2 puff INHALATION Q24H 07/24/20 [History Confirmed 07/24/20 Last Taken 07/23/20 08:00] Eliquis 5 mg PO BID 07/25/20 [History Confirmed 07/25/20 Last Taken 07/23/20 17:00] pantoprazole [Protonix] 40 mg PO QDAY #50 each 07/25/20 [Rx Last Taken Unknown] COURSE Hospital Course Hospital course: History of present illness: Mr. Cunningham is a 74 year old M Who presents the ED with chest pain described as pyrosis in nature and weakness. Presented today because of severe weakness. He is visiting from out of town, visiting his daughter. Patient was recently diagnosed that fibrillation and has been on a twice daily anticoagulant which she cannot recall the name of. He started developing dark stools and then developed diarrhea for the past couple days which has been dark. Troponin was unremarkable. He is found have a hemoglobin of 5.8. Blood transfusion was ordered and general surgeon Dr. Macarena Mon was consulted for endoscopy. Patient's vital signs are stable. Patient complains of several week severe weakness is unable to walk across the room of his house. He has some lightheadedness. Chest pain started in the center of his chest and radiated count of up and down from the center and it felt like his heartburn. And then did have some radiation the left. But has improved but primarily his complaint now is weakness. Patient does have chronic headaches and takes Tylenol but does not take NSAIDs. No abdominal pain. 1/3 Feeling much better since blood transfusion. Feeling stronger. No bloody stools overnight. Pending endoscopy. May restart anticoagulation and 48 hours, continue to hold aspirin. 1/4 Patient doing well. No bloody bowel movements overnight. H&H stable. A: *GI bleed: 2/2 PUD *Acute blood loss anemia on likely chronic given CKD: *Pyrosis: *AFib, recent diagnosed: Started on anticoagulation (?eliquis) recently, also on aspirin *COPD (4L O2@home): *KURT w/cpap: *DM w/neuropathy: *CKD IV: Discharge diagnosis: GI bleed with peptic ulcers acute blood loss anemia pyrosis Secondary discharge diagnosis: A. fib COPD KURT diabetes CKD, GERD Time Spent with Patient Time attestation: Total time spent providing and/or coordinating discharge services: Time spent: Greater than 30 minutes EXAM Constitutional Vitals: Temp Pulse Resp BP Pulse Ox 97.9 F 67 17 113/69 93 07/25/20 16:01 07/25/20 16:42 07/25/20 16:01 07/25/20 16:01 07/25/20 16:42 Discharge Data Data Completed and Pending Labs on day of discharge: Labs from last 24 hours 07/25/20 07/25/20 07/24/20 05:25 05:25 20:15 WBC 8.3 RBC 2.58 L Hgb 7.5 L Hct 24.5 L MCV 95.0 MCH 29.1 MCHC 30.6 L RDW 17.2 H Plt Count 261 MPV 9.8 Neut % (Auto) 68.9 Lymph % (Auto) 17.2 [place] % (Auto) 11.5 Eos % (Auto) 1.8 Baso % (Auto) 0.6 Lymph # (Auto) 1.42 L [place] # (Auto) 0.95 H Eos # (Auto) 0.15 Baso # (Auto) 0.05 Seg Neutrophils % Band Neutrophils % Lymphocytes % Monocytes % (Manual) Eosinophils % (Manual) Absolute Neutrophils 5.68 Platelet Estimate RBC Morphology Anisocytosis PT 16.4 H INR 1.3 H Sodium 138 Potassium 4.5 Chloride 100 Carbon Dioxide 31 H Anion Gap 7.0 L BUN 41 H Creatinine 2.0 H GFR Calculation 32 Glucose 110 H Uric Acid 7.3 Calcium 8.3 L Phosphorus 4.0 Magnesium 2.2 Total Bilirubin 0.4 Direct Bilirubin < 0.2 GGT 24 AST 9 ALT 9 Alkaline Phosphatase 70 Lactate Dehydrogenase 126 L Total Protein 5.7 L Albumin 3.0 L Globulin 2.7 Albumin/Globulin Ratio 1.1 Triglycerides 138 07/24/20 20:15 WBC 9.9 RBC 2.74 L Hgb 8.2 L Hct 26.2 L MCV 95.6 MCH 29.9 MCHC 31.3 RDW 16.9 H Plt Count 281 MPV 9.9 Neut % (Auto) Lymph % (Auto) [place] % (Auto) Eos % (Auto) Baso % (Auto) Lymph # (Auto) [place] # (Auto) Eos # (Auto) Baso # (Auto) Seg Neutrophils % 78 Band Neutrophils % 4 Lymphocytes % 14 L Monocytes % (Manual) 3 Eosinophils % (Manual) 1 Absolute Neutrophils Platelet Estimate Normal RBC Morphology Normal Anisocytosis 1+ A PT INR Sodium Potassium Chloride Carbon Dioxide Anion Gap BUN Creatinine GFR Calculation Glucose Uric Acid Calcium Phosphorus Magnesium Total Bilirubin Direct Bilirubin GGT AST ALT Alkaline Phosphatase Lactate Dehydrogenase Total Protein Albumin Globulin Albumin/Globulin Ratio Triglycerides Preliminary micro results at discharge 07/24/20 12:21 Urine Culture - Preliminary Urine - Clean Void Mid-Stream Escherichia coli Discharge Plan Patient/Caregiver Discharge Instructions Activity: increase activity as tolerated Diet: Consistent Carbohydrate Activity Restrictions/Additional Instructions: May restart Eliquis on 07/28/2020. Follow-up with PCP in 3 to 7 days follow-up with Gen surg for GI for f/u EGD in several months Prescriptions: New pantoprazole [Protonix] [address] for susp in packet 40 mg PO QDAY Qty: 50 RF: 0 Continued atorvastatin 80 mg Tablet 80 mg PO QDAY RF: 0 metoprolol tartrate 100 mg Tablet 100 mg PO BID RF: 0 amiodarone 200 mg Tablet 200 mg PO BID RF: 0 lidocaine 5 % Adhesive Patch,Medicated 1 patch TOPICAL QDAY RF: 0 gabapentin 300 mg Capsule 600 mg PO BID RF: 0 albuterol sulfate 90 mcg/actuation Hfa Aerosol Inhaler 2 puff INHALATION Q4H PRN (Reason: short of breath) RF: 0 insulin glargine 100 unit/mL (3 mL) Insulin Pen 34 unit SUBCUT QPM RF: 0 tiotropium-olodaterol 2.5-2.5 mcg/actuation Mist 2 puff INHALATION Q24H RF: 0 magnesium oxide 420 mg Tablet 420 mg PO QDAY RF: 0 Daily Probiotic 2.5 billion cell Capsule 1 cap PO DAILY RF: 0 metformin 500 mg Tablet 500 mg PO BID RF: 0 Eliquis 5 mg Tablet 5 mg PO BID RF: 0 Discontinued aspirin 81 mg Tablet,Chewable 81 mg PO QDAY RF: 0 No Action acetaminophen 500 mg Tablet 1,000 mg PO Q6H PRN (Reason: Pain) RF: 0 Follow Up Plan Patient Disposition: Home, Self-Care Prognosis: Fair Discharge Orders: Discharge Order (Routine); Ordered 07/26/20 Ordered By: Cedrick PEARCE VTE Deep Vein Thrombosis/Pulmonary Embolism Present on Admission: No
[2020-07-25] MEDS: ACETAMINOPHEN 325 MG TABLET PO PRN (22:58)
[2020-07-25] MEDS: PANTOPRAZOLE 40 MG TABLET PO SCH (23:00)
[2020-07-25] MEDS: ATORVASTATIN 40 MG TABLET PO SCH (23:01)
[2020-07-25] MEDS: INSULIN GLARGINE, HUMAN 1 UNIT/0.01 ML SQ SCH (23:02)
[2020-07-26] MEDS: METOPROLOL TARTRATE 50 MG TABLET PO SCH ×2 (02:49→09:59)
[2020-07-26] MEDS: 0.9 % SODIUM CHLORIDE 10 ML SYRINGE IV SCH (05:34)
[2020-07-26 07:03] LABS: Basophils # (Auto) 0.03 K/mcL (0.00-0.20); Basophils % (Auto) 0.4 % (0.0-2.0); Eosinophils # (Auto) 0.15 K/mcL (0.00-0.70); Eosinophils % (Auto) 2.2 % (0.0-7.0); Hematocrit 26.4 % (41.0-55.0); Hemoglobin 8.2 g/dL (13.5-16.5); Lymphocytes # (Auto) 0.76 K/mcL (1.50-4.80); Lymphocytes % (Auto) 11.2 % (15.0-49.0); Mean Cell Volume 94.3 fL (80.0-100.0); Mean Corpuscular HGB Conc 31.1 g/dL (31.0-36.0); Mean Platelet Volume 9.8 fL (7.4-10.4); Monocytes # (Auto) 0.77 K/mcL (0.10-0.90); Monocytes % (Auto) 11.3 % (1.0-12.0); Neutrophils % (Auto) 74.9 % (38.0-78.0); Platelet Count 249 K/mcL (140-440); Red Cell Distribution Width 17.3 % (11.5-14.5); WBC 6.8 K/mcL (4.5-11.0)
[2020-07-26] MEDS: PANTOPRAZOLE 40 MG TABLET PO SCH (07:45)
[2020-07-26 07:48] LABS: Blood Urea Nitrogen 30 mg/dL (8-23); Calcium 8.7 mg/dL (8.6-10.4); Carbon Dioxide 31 mmol/L (22-30); Chloride 99 mmol/L (96-108); Glomerular Filtration Rate 38; Glucose 109 mg/dL (70-105)
[2020-07-26] MEDS: INSULIN LISPRO 1 UNIT/0.01 ML UNIT SQ SCH ×2 (07:48→12:06)
[2020-07-26] MEDS: GABAPENTIN 300 MG CAPSULE PO SCH (09:58)
[2020-07-26] MEDS: LIDOCAINE PATCH TOPICAL SCH (09:59)
[2020-07-26] MEDS: AMIODARONE HCL 200 MG TABLET PO SCH (09:59)
[2020-07-26] MEDS: CALCIUM CARBONATE 500 MG TAB.CHEW CHEWED SCH ×2 (09:59→12:06)
[2020-07-26] MEDS: TIOTROPIUM OLODATEROL INH SCH (09:59)
[2020-07-26] MEDS: cefTRIAXone 1 GM VIAL IV SCH (10:05)
--- NOTE | 2020-07-26 11:09 | Operative Note ---
DATE OF OPERATION: 07/25/2020 PREOPERATIVE DIAGNOSIS: Upper GI bleed. POSTOPERATIVE DIAGNOSIS: Upper GI bleed, likely from pyloric ulcers. PROCEDURE: EGD. SURGEON: Aquiles Dubose MD PACKER OPERATOR AUTOMATIC: None. INDICATIONS: This is a 74-year-old man on therapeutic anticoagulation with Factor 10 A inhibitor, who presented with marked blood loss anemia with a hemoglobin of 5. He was transfused 3 units of blood and had significant improvement in his fatigue. Of note, he did not have hemodynamic instability. The patient had a history of melanotic stools, but has not had melanotic stools, or stools of any kind since admission to the hospital some 24 hours ago. He was taken for investigation. FINDINGS: 1. Multiple, approximately 4, duodenal polyps, status post benefits representative biopsy. 2. Mild duodenitis, status post biopsy. 3. A total of 3 small pyloric ulcers. There was no active bleeding, adherent clot or visible vessels. These were likely the site of the patient's bleed. 4. Multiple antral biopsies obtained for H. pylori testing. 5. The gastric mucosa was healthy. 6. GE junction and hiatus both at 48 cm. 7. No esophageal varices, tortuous esophagus. DESCRIPTION OF PROCEDURE: The patient was brought to the operating room. He was given procedural sedation by Anesthesia. A gastroscope was introduced through the mouth and without much difficulty the proximal esophagus was intubated. The esophagus was tortuous, but there were no varices identified. We passed through the GE junction without incident. There was no blood within the stomach and the mucosa and rugae of the stomach appeared robust and healthy. The scope was retroflexed and the fundus was carefully inspected. There was no bleeding or ulcerations. There was no paraesophageal hernia with a type 1 hill valve. We moved onwards to the duodenum, intubated the duodenum into the second portion of it. Again, there was no significant blood. Slowly withdrawing, there were approximately 4 duodenal polyps. A benefits representative biopsy was obtained. In the first portion of the duodenum there was mild duodenitis without ulceration and this mucosa was biopsied. At the level of the pylorus there was a collection of approximately 3 relatively small linear pyloric ulcerations with fibrinous debris at their base. There was no active bleeding or adherent clot in this area and there were no visible vessels. Multiple antrum biopsies were obtained to evaluate for H. pylori. Withdrawing the scope through the stomach, the GE junction and hiatus were both located at 48 cm. The esophagus was again inspected upon withdrawal and again no sites of bleeding including no varices were identified. The patient tolerated the procedure well. ESTIMATED BLOOD LOSS: Approximately 1 mL. COMPLICATIONS: None. IMPLANTS: None. SPECIMENS: 1. Duodenal polyp. 2. First portion of the duodenum/duodenal mucosa to evaluate for duodenitis. 3. Gastric antral biopsies. JS:macy Job ID: [id number] Doc ID: [id number] Aquiles Dubose
--- NOTE | 2020-07-28 10:49 | Surgical Pathology Report ---
Histology Microscopic Diagnosis Specimen A- DUODENUM, POLYP, BIOPSY: -- POLYPOID FRAGMENT OF DUODENAL MUCOSA WITH GASTRIC METAPLASIA AND MILD CHRONIC INFLAMMATION. -- METAPLASIA CONFIRMED ON ALCIAN BLUE/PAS STAIN (ADEQUATE TECHNICAL CONTROL). -- NO DYSPLASIA OR MALIGNANCY IDENTIFIED. Clinical History Upper GI bleed. Procedural Impression Duodenal polyps; mild duodenitis; pyloric ulcers; (?) H. pylori. Gross Description Received in formalin labeled duodenal polyp, is a 0.4 cm galicia-de la cruz fragment of tissue. Totally submitted - one cassette. Microscopic Diagnosis Specimen B- DUODENUM, BIOPSY: -- DUODENAL MUCOSA WITH INTACT VILLOUS ARCHITECTURE AND NO INCREASE IN INTRAEPITHELIAL LYMPHOCYTES. -- POSITIVE FOR FOCAL GASTRIC METAPLASIA (ALCIAN BLUE/PAS STAIN WITH ADEQUATE TECHNICAL CONTROL). Gross Description Received in formalin labeled duodenal biopsy, is a 0.4 cm fragment of pink-de la cruz tissue. Totally submitted - one cassette. Microscopic Diagnosis Specimen C- STOMACH, ANTRUM, BIOPSY: -- MILD CHRONIC GASTRITIS WITH FOCAL SURFACE INFLAMMATORY EXUDATE. -- NO HELICOBACTER TYPE ORGANISMS IDENTIFIED (ALCIAN YELLOW STAIN WITH ADEQUATE TECHNICAL CONTROL). (RLF:sln) Gross Description Received in formalin labeled gastric antrum, are six fragments of galicia-de la cruz tissue 0.4 to 0.6 cm. Totally submitted - one cassette. (KGW:sln) Electronically Signed Ester Verdugo MD, FCAP Electronically Signed 07/28/2020 10:47 AM
== END 2020-07-26 12:30 | disposition home or self-care (01) | DRG 378 ==
LOC: ED 11:12 → ICU 14:27
PROVIDERS: ADMIT Internal Medicine; ATTEND Internal Medicine